=== PATIENT | female | born 1955 | race Caucasian/White ===

== ENCOUNTER 2016-11-05 19:10 | Inpatient (IN) | payer BC ==
[~2016-11-05] VITALS: Ht 162.6 cm; Wt 113.7 kg
[2016-11-05 20:15] LABS: ADD MIUA? YES; BILIRUBIN NEGATIVE; BLOOD SMALL; COLOR YELLOW ((YELLOW)); GLUCOSE (STRIP) NEGATIVE; KETONES NEGATIVE; LEUKOCYTES NEGATIVE; NITRITE NEGATIVE; PROTEIN (STRIP) 100; SPECIFIC GRAVITY 1.019 (1.000-1.030); UROBILINOGEN 0.2 MG/DL (0.2-1.0)
[2016-11-05 20:19] LABS: HEMATOCRIT 45.3 % (36.0-46.0); MCH 27.1 PG (29.0-34.0); MCHC 32.7 G/DL (30.0-36.0); MCV 82.8 FL (83-99); MEAN PLAT.VOLUME 10.6 uM^3 (9.5-12.4); PLATELET COUNT 274 K/uL (156-360); RBC DIS.WIDTH-CV 14.1 % (11.8-14.6); RBC DIS.WIDTH-SD 42.2 % (39-53); RED BLOOD COUNT 5.47 M/uL (3.80-5.20); WHITE BLOOD COUNT 13.8 K/uL (4.1-10.2)
[2016-11-05 20:34] LABS: CHLORIDE 108 mEq/L (99-109); POTASSIUM 4.5 mEq/L (3.7-5.4); SODIUM 138 mEq/L (136-147)
[2016-11-05 20:36] LABS: GLUCOSE 92 mg/dL (70-99)
[2016-11-05 20:38] LABS: ANION GAP 14 MEQ/L (2-14); TOTAL BILIRUBIN 0.2 mg/dL (0.0-1.0)
[2016-11-05 20:40] LABS: ALKALINE PHOSPHATASE 139 IU/L (3-129); GFR ESTIMATE (CALCULATED) 44 mL/min/
[2016-11-05 20:41] LABS: UREA NITROGEN (BUN) 19 mg/dL (9-23)
[2016-11-05 21:07] LABS: BACTERIA RARE; CASTS PRESENT /LPF; CRYSTALS NONE SEEN; EPITHELIAL CELLS 1+; FINE GRANULAR CASTS 0-5 /LPF; HYALINE CASTS 0-5 /LPF; MUCUS 1+; RED BLOOD CELLS 0-5 /HPF (0-5); UCUL ADDED? NO; WHITE BLOOD CELLS 0-5 /HPF (0-5)
[2016-11-05 21:46] LABS: LIPASE 15 U/L (1.0-51.0)
[2016-11-05] MEDS ORDERED: PROTONIX40 MG PO (23:14)
[2016-11-05] MEDS ORDERED: MYRBETRIQ50 MG PO (23:15)
[2016-11-05] MEDS ORDERED: EFFEXOR XR37.5 MG PO (23:16)
[2016-11-05] MEDS ORDERED: CIPROFLOXACIN500 M1 PO (23:17)
[2016-11-06] VITALS (7 sets, daily range): BP systolic 105–134; BP diastolic 55–81
[2016-11-06 06:56] LABS: ANION GAP 11 MEQ/L (2-14); CHLORIDE 106 MEQ/L (99-109); GFR ESTIMATE (CALCULATED) 49 mL/min/; GLUCOSE 108 mg/dL (70-99); POTASSIUM 4.4 MEQ/L (3.7-5.4); SAMPLE HEMOLYSIS CHECK 0; SAMPLE ICTERIC CHECK 0; SAMPLE LIPEMIA CHECK 0; SODIUM 140 MEQ/L (136-147); UREA NITROGEN (BUN) 16 mg/dL (9-23)
[2016-11-06 06:59] LABS: EOSINOPHIL COUNT 0.1 K/uL (0-0.3); HEMATOCRIT 40.7 % (36.0-46.0); IMMATURE GRANULOCYTE (%) 0.4 % (0.0-0.7); LYMPHOCYTE COUNT 1.3 K/uL (1.0-2.8); MCHC 31.7 G/DL (30.0-36.0); MCV 85.3 FL (83-99); MONOCYTE (%) 8.1 % (3-12); MONOCYTE COUNT 0.7 K/uL (0-0.8); NEUTROPHIL (%) 75.2 % (45-76); NEUTROPHIL COUNT 6.3 K/uL (1.8-6.4); RBC DIS.WIDTH-CV 14.3 % (11.8-14.6); RBC DIS.WIDTH-SD 44.3 % (39-53); RED BLOOD COUNT 4.77 M/uL (3.80-5.20)
[2016-11-06 07:01] LABS: WHITE BLOOD COUNT 8.4 K/uL (4.1-10.2)
[2016-11-06 07:59] LABS: MEAN PLAT.VOLUME 11.3 uM^3 (9.5-12.4); PLAT.SUFFICIENCY ADEQUATE; PLATELET COUNT 204 K/uL (156-360)
[2016-11-07 03:45] VITALS: BP 137/76
[2016-11-07 06:56] LABS: ALKALINE PHOSPHATASE 102 IU/L (3-129); ANION GAP 9 MEQ/L (2-14); CHLORIDE 106 MEQ/L (99-109); GFR ESTIMATE (CALCULATED) > 59 mL/min/; GLUCOSE 107 mg/dL (70-99); POTASSIUM 4.2 MEQ/L (3.7-5.4); SAMPLE HEMOLYSIS CHECK 0; SAMPLE ICTERIC CHECK 0; SAMPLE LIPEMIA CHECK 0; SODIUM 141 MEQ/L (136-147); TOTAL BILIRUBIN 0.3 MG/DL (0.0-1.0); UREA NITROGEN (BUN) 12 mg/dL (9-23)
[2016-11-07 07:13] LABS: EOSINOPHIL (%) 1.6 % (0-5); EOSINOPHIL COUNT 0.1 K/uL (0-0.3); HEMATOCRIT 40.4 % (36.0-46.0); IMMATURE GRANULOCYTE (%) 0.2 % (0.0-0.7); LYMPHOCYTE COUNT 1.4 K/uL (1.0-2.8); MCH 27.3 PG (29.0-34.0); MCHC 32.2 G/DL (30.0-36.0); MCV 84.9 FL (83-99); MEAN PLAT.VOLUME 10.8 uM^3 (9.5-12.4); MONOCYTE (%) 4.4 % (3-12); MONOCYTE COUNT 0.3 K/uL (0-0.8); NEUTROPHIL (%) 69.5 % (45-76); PLATELET COUNT 261 K/uL (156-360); RBC DIS.WIDTH-CV 14.4 % (11.8-14.6); RBC DIS.WIDTH-SD 44.3 % (39-53); RED BLOOD COUNT 4.76 M/uL (3.80-5.20)
[2016-11-07 07:19] LABS: WHITE BLOOD COUNT 5.7 K/uL (4.1-10.2)
[2016-11-07 08:08] VITALS: BP 136/80
[2016-11-07] MEDS ORDERED: CEFTIN500 MG PO (09:59)
== END 2016-11-07 10:44 | disposition home or self-care (01) | DRG 690 ==
LOC: EME 19:10 → EDOF 11-06 01:25 → 2EAST 11-06 02:27
PROVIDERS: Hospitalist; Internal Medicine
DX: N10 Acute pyelonephritis (principal); F33.9 Major depressive disorder, recurrent, unspecified; Z68.41 Body mass index [BMI] 40.0-44.9, adult; K21.9 Gastro-esophageal reflux disease without esophagitis; E66.9 Obesity, unspecified; N39.46 Mixed incontinence; N11.9 Chronic tubulo-interstitial nephritis, unspecified; Z87.442 Personal history of urinary calculi; Z96.651 Presence of right artificial knee joint; Z80.1 Family history of malignant neoplasm of trachea, bronchus and lung; Z82.49 Family history of ischemic heart disease and other diseases of the circulatory system
CPT/HCPCS: 74177; 80048; 80053; 81003; 83690; 85025; 85027; 99281; 99285; J0696; J1644; J2405; J3010; J7030; J7050

== ENCOUNTER 2016-11-18 08:38 | Emergency (ER) | payer BC ==
[~2016-11-18] VITALS: Ht 165.1 cm; Wt 111.0 kg
[~2016-11-18 08:38] MED LIST: CEFTIN500 MG PO; CIPROFLOXACIN500 M1 PO; EFFEXOR XR37.5 MG PO; MYRBETRIQ50 MG PO; PROTONIX40 MG PO
[2016-11-18 09:27] LABS: HEMATOCRIT 42.4 % (36.0-46.0); MCH 26.6 PG (29.0-34.0); MCHC 32.3 G/DL (30.0-36.0); MCV 82.2 FL (83-99); MEAN PLAT.VOLUME 10.2 uM^3 (9.5-12.4); PLATELET COUNT 283 K/uL (156-360); RBC DIS.WIDTH-CV 14.4 % (11.8-14.6); RBC DIS.WIDTH-SD 42.8 % (39-53); RED BLOOD COUNT 5.16 M/uL (3.80-5.20); WHITE BLOOD COUNT 7.2 K/uL (4.1-10.2)
[2016-11-18 09:37] LABS: CHLORIDE 107 mEq/L (99-109); SODIUM 140 mEq/L (136-147)
[2016-11-18 09:39] LABS: GLUCOSE 135 mg/dL (70-99)
[2016-11-18 09:40] LABS: ANION GAP 10 MEQ/L (2-14)
[2016-11-18 09:41] LABS: TOTAL BILIRUBIN 0.4 mg/dL (0.0-1.0)
[2016-11-18 09:42] LABS: ALKALINE PHOSPHATASE 118 IU/L (3-129)
[2016-11-18 09:43] LABS: GFR ESTIMATE (CALCULATED) > 59 mL/min/
[2016-11-18 09:44] LABS: UREA NITROGEN (BUN) 13 mg/dL (9-23)
[2016-11-18 10:10] LABS: ADD MIUA? NO; BILIRUBIN NEGATIVE; BLOOD NEGATIVE; COLOR YELLOW ((YELLOW)); GLUCOSE (STRIP) NEGATIVE; KETONES NEGATIVE; LEUKOCYTES NEGATIVE; NITRITE NEGATIVE; PH, URINE 5.5 (5-8); PROTEIN (STRIP) NEGATIVE; SPECIFIC GRAVITY 1.027 (1.000-1.030); UCUL ADDED? NO; UROBILINOGEN 0.2 MG/DL (0.2-1.0)
[2016-11-18 14:39] VITALS: BP 168/76
== END 2016-11-18 14:44 | disposition home or self-care (01) ==
LOC: EME 08:38
PROVIDERS: Nurse Practitioner Family
DX: R10.9 Unspecified abdominal pain (principal); N28.1 Cyst of kidney, acquired; Z87.440 Personal history of urinary (tract) infections; K21.9 Gastro-esophageal reflux disease without esophagitis
CPT/HCPCS: 74020; 76770; 80053; 81003; 85027; 99281; 99284

== ENCOUNTER 2017-06-23 07:34 | Emergency (ER) | payer BC ==
[~2017-06-23] VITALS: Ht 165.1 cm; Wt 114.1 kg
[2017-06-23 08:09] LABS: EOSINOPHIL (%) 1.8 % (0-5); EOSINOPHIL COUNT 0.2 K/uL (0-0.3); HEMATOCRIT 46.4 % (36.0-46.0); IMMATURE GRANULOCYTE (%) 0.1 % (0.0-0.7); INSTRUMENT ABS NEUTROPHIL CT 6.9 K/uL; LYMPHOCYTE COUNT 1.2 K/uL (1.0-2.8); MCH 26.5 PG (29.0-34.0); MCHC 31.3 G/DL (30.0-36.0); MCV 84.7 FL (83-99); MEAN PLAT.VOLUME 10.3 uM^3 (9.5-12.4); MONOCYTE (%) 6.2 % (3-12); MONOCYTE COUNT 0.6 K/uL (0-0.8); NEUTROPHIL (%) 77.9 % (45-76); NEUTROPHIL COUNT 6.9 K/uL (1.8-6.4); PLATELET COUNT 278 K/uL (156-360); RBC DIS.WIDTH-CV 13.3 % (11.8-14.6); RBC DIS.WIDTH-SD 41.6 % (39-53); RED BLOOD COUNT 5.48 M/uL (3.80-5.20); WHITE BLOOD COUNT 8.9 K/uL (4.1-10.2)
[2017-06-23 08:30] LABS: CHLORIDE 105 mEq/L (99-109); POTASSIUM 4.2 mEq/L (3.7-5.4); SODIUM 140 mEq/L (136-147)
[2017-06-23 08:31] LABS: GLUCOSE 125 mg/dL (70-99)
[2017-06-23 08:33] LABS: ANION GAP 10 MEQ/L (2-14)
[2017-06-23 08:35] LABS: GFR ESTIMATE (CALCULATED) > 59 mL/min/
[2017-06-23 08:36] LABS: UREA NITROGEN (BUN) 17 mg/dL (9-23)
[2017-06-23 09:22] LABS: ADD MIUA? YES; BILIRUBIN NEGATIVE; BLOOD SMALL; COLOR YELLOW ((YELLOW)); GLUCOSE (STRIP) NEGATIVE; KETONES NEGATIVE; LEUKOCYTES NEGATIVE; NITRITE NEGATIVE; PROTEIN (STRIP) NEGATIVE; SPECIFIC GRAVITY 1.026 (1.000-1.030); UROBILINOGEN 0.2 MG/DL (0.2-1.0)
[2017-06-23 09:36] LABS: BACTERIA NONE SEEN /HPF; EPITHELIAL CELLS 1+ /HPF; MUCUS TRACE /LPF; RED BLOOD CELLS 0-5 /HPF (0-5); UCUL ADDED? NO; WHITE BLOOD CELLS 0-5 /HPF (0-5)
[2017-06-23] MEDS ORDERED: TYLENOL WITH C1 EACH PO (10:27)
[2017-06-23 10:34] VITALS: BP 147/98
== END 2017-06-23 10:41 | disposition home or self-care (01) ==
LOC: EME 07:34
PROVIDERS: Emergency Medicine
DX: R10.9 Unspecified abdominal pain (principal); R32 Unspecified urinary incontinence; R11.2 Nausea with vomiting, unspecified; R82.99 Other abnormal findings in urine; Z87.440 Personal history of urinary (tract) infections
CPT/HCPCS: 74176; 80048; 81003; 85025; 99281; 99284

== ENCOUNTER → 2018-01-03 | Outpatient (CLI) | payer OTHER ==
[~2018-01-03] MED LIST changes: +TYLENOL WITH C1 EACH PO
== END | disposition home or self-care (01) ==
LOC: RAD 08:33
DX: Z02.71 Encounter for disability determination (principal); Z96.651 Presence of right artificial knee joint
CPT/HCPCS: 73560